=== PATIENT | female | born 1980 | race African-American/Black ===

== ENCOUNTER 2019-01-18 18:41 | Emergency (ER) | payer OTHER ==
[~2019-01-18] VITALS: Ht 167.6 cm; Wt 56.2 kg
[2019-01-18] MEDS ORDERED: BENADRYL25 MG PO (19:03)
[2019-01-18] MEDS ORDERED: EXCEDRIN CAPLE1 EACH PO (19:04)
[2019-01-18 20:11] LABS: ABSOLUTE NEUTROPHILS 2.2 thou/uL (1.4-8.2); BASOPHILS 1.6 % (0.0-2.0); EOSINOPHILS 0.2 % (0.0-3.0); HEMATOCRIT 38.3 % (37.0-47.0); HEMOGLOBIN 12.9 gm/dL (12.0-15.0); LYMPHOCYTES 32.4 % (24.0-44.0); MCH 31.5 pg (26.0-34.0); MCHC 33.6 g/dL (28.0-37.0); MCV 93.8 fL (80.0-100.0); MONOCYTES 7.5 % (1.0-8.0); PLATELET COUNT 273 thou/uL (150-400); POLYS 58.3 % (36.0-66.0); RBC 4.09 mil/uL (4.20-5.00); RDW 13.6 % (10.5-14.5); WBC 3.7 thou/uL (4.0-11.0)
[2019-01-18 20:18] LABS: ANION GAP 10 mmol/L (7-16); BUN 8 mg/dL (7-18); CALCIUM 9.6 mg/dL (8.5-10.1); CHLORIDE 102 mmol/L (98-107); CO2 28 mmol/L (21-32); CREATININE 0.8 mg/dL (0.6-1.0); GLUCOSE 88 mg/dL (74-106); POTASSIUM 3.9 mmol/L (3.5-5.1); SODIUM 140 mmol/L (136-145)
[2019-01-18 20:25] LABS: SGOT 15 U/L (15-37); SGPT 17 U/L (30-65); TOTAL BILIRUBIN 0.3 mg/dL (<0.1-1.0); TOTAL PROTEIN 7.7 g/dL (6.4-8.2); TROPONIN-I <0.06 ng/mL (<0.06)
[2019-01-18] MEDS ORDERED: CYCLOBENZAPRINE5 MG PO (21:14)
[2019-01-18] MEDS ORDERED: MECLIZINE HCL25 MG PO (21:14)
[2019-01-18] MEDS ORDERED: AMOXICILLIN 50500 M1 PO (21:14)
[2019-01-18 21:24] VITALS: BP 151/94
--- NOTE | 2019-01-19 17:05 | EKG ---
[place] [address] [facility] [place] [address] ELECTROCARDIOGRAM REPORT Name: MELI RUELASGABBY Hankins [id number] ������������������ Admission: 01/18/19 ������������������ Attend Phys: Discharge: 01/18/19 ������������������ Date of : 80 Report #: [id number] ����������������������������������������������������������������� [id number] THIS REPORT FOR: //name// [facility] ED Test Date: 2019-01-18 Test Time: 19:28:05 Pat Name: CECILE RUELAS Department: Room: Gender: [employer]: WALTER : 1980 Requested By: Eric Martinez Order Number: [id number] MD: Alex Coleman Measurements Intervals [place] Rate: 59 P: 63 HI: 121 QRS: 64 QRSD: 93 T: 41 QT: 375 QTc: 372 Interpretive Statements Sinus bradycardia Otherwise normal tracing No previous ECG available for comparison Electronically Signed On 01-19-2019 17:05:41 CDT by Alex Coleman [email or web address] ��������������������������������������������� <ELECTRONICALLY SIGNED> ���������������������������������������� By: Alex Coleman MD, [facility] ��������������������������������������������� 01/19/19 1705 1928 27 Alex Coleman MD, FACC /EPI
== END 2019-01-18 21:28 | disposition home or self-care (01) ==
LOC: ER 18:41
PROVIDERS: Physician Assistant
DX: R42 Dizziness and giddiness (principal); H66.90 Otitis media, unspecified, unspecified ear; M32.9 Systemic lupus erythematosus, unspecified; Z91.041 Radiographic dye allergy status; Z86.2 Personal history of diseases of the blood and blood-forming organs and certain disorders involving the immune mechanism